=== PATIENT | male | born 1975 | race Caucasian/White ===

== ENCOUNTER 2020-05-11 13:35 | Emergency (ER) | payer SELFPAY ==
[~2020-05-11] VITALS: Ht 162.6 cm; Wt 88.2 kg
[2020-05-11] MEDS ORDERED: ACETAMINOPHEN 500 MG TABLET ONE (14:15)
[2020-05-11] MEDS ORDERED: DEXAMETHASONE 4 MG TABLET ONE (14:15)
[2020-05-11] MEDS ORDERED: ACET325T14 PO (14:27)
[2020-05-11] MEDS ORDERED: ACETAMINOPHEN 500 MG TABLET PO ONE (14:30)
[2020-05-11] MEDS ORDERED: DEXAMETHASONE 4 MG TABLET PO ONE (15:00)
[2020-05-11 16:23] VITALS: BP 99/59
--- NOTE | 2020-05-11 16:24 | NUR ---
Patient given discharge instructions and they have confirmed that they understand the instructions. Patient ambulatory with steady gait.
== END 2020-05-11 16:25 | disposition home or self-care (01) ==
LOC: ED 14:26
DX: U07.1 COVID-19 (principal); B34.9 Viral infection, unspecified; J02.9 Acute pharyngitis, unspecified; R50.9 Fever, unspecified; R11.0 Nausea; R09.89 Other specified symptoms and signs involving the circulatory and respiratory systems; M79.10 Myalgia, unspecified site
CPT/HCPCS: 87635; 99283